=== PATIENT | male | born 1955 | race Caucasian/White ===

== ENCOUNTER → 2021-05-04 | Outpatient (CLI) | payer MEDICARE ==
[~2021-05-04] MED LIST: FLOMAX 0.40.4 MG/CAP PO; PERCOCET 325 MG1 TA2 PO; PHENERGAN 25 TA25 MG PO; PHENERGAN25 MG RC; PREVACID 30MG30 M1 PO; ZYLOPRIM 300MG300 MG PO; blood pressure med
== END ==
LOC: COL.RAD 11:09
DX: Z01.812 Encounter for preprocedural laboratory examination (principal); R91.1 Solitary pulmonary nodule; N28.9 Disorder of kidney and ureter, unspecified
CPT/HCPCS: Q9967